=== PATIENT | male | born 1965 | race Caucasian/White ===

== ENCOUNTER 2017-07-25 10:23 | Inpatient (IN) | payer OTHER ==
[2017-07-25 11:16] VITALS: BMI 22.1
--- NOTE | 2017-07-25 11:17 | HP ---
COWS - Scale Resting Pulse: 0= [place] 80 or Below Sweatin= Chills/Flushing Restless Observation: 0= Sits Still Pupil Size: 0= Normal to Room Light Bone or Joint Aches: 2= Severe Diffuse Aches Runny Nose/ Eye Tearin= Nasal Congestion GI Upset > 30mins: 1= Stomach Cramp Tremor Observation: 1= Tremor [place], Not Seen Yawning Observation: 1= 1-2x During Session Anxiety or Irritability: 2=Irritable/Anxious Goose Flesh Skin: 3=Piloerection COWS Score: 12 Admission ROS BHS - HPI Chief Complaint: I'm tired of using, just tired, I have a new job I want to start Allergies/Adverse Reactions: Allergies Allergy/AdvReac Type Severity Reaction Status Date / Time No Known Allergies Allergy Verified 07/25/17 11:12 History of Present Illness: 52 yo gentleman here for first time detox from heroin - denies any prior medical problems, no seizure history, no alcohol use. Weight loss of 40lbs in last year. Exam Limitations: No Limitations - Ebola screening Have you traveled outside of the country in the last 21 days: No Have you had contact with anyone from an Ebola affected area: No Do you have a fever: No - Review of Systems Constitutional: Chills, Loss of Appetite, Malaise, Changes in sleep, Unintentional Wgt. Loss EENT: reports: Blurred Vision, Nose Congestion Respiratory: reports: No Symptoms reported Cardiac: reports: No Symptoms Reported GI: reports: Nausea : reports: Dysuria Musculoskeletal: reports: Back Pain, Muscle Pain Integumentary: reports: No Symptoms Reported Neuro: reports: Headache Endocrine: reports: No Symptoms Reported Hematology: reports: No Symptoms Reported Psychiatric: reports: Judgement Intact, Mood/Affect Appropiate, Orientated x3, Anxious Other Systems: Reviewed and Negative Patient History - Patient Medical History Hx Anemia: No Hx Asthma: No Hx Chronic Obstructive Pulmonary Disease (COPD): No Hx Cancer: No Hx Cardiac Disorders: No Hx Congestive Heart Failure: No Hx Hypertension: No Hx Hypercholesterolemia: No Hx Pacemaker: No HX Cerebrovascular Accident: No Hx Seizures: No Hx Dementia: No Hx Diabetes: No Hx Gastrointestinal Disorders: No Hx Liver Disease: No Hx Genitourinary Disorders: No Hx Sexually Transmitted Disorders: No Hx Renal Disease (ESRD): No Hx Thyroid Disease: No Hx Human Immunodeficiency Virus (HIV): No Hx Hepatitis C: No Hx Depression: No Hx Suicide Attempt: No Hx Bipolar Disorder: No Hx Schizophrenia: No - Patient Surgical History Past Surgical History: No - PPD History Previous Implant?: Yes Documented Results: Negative w/o proof PPD to be Administered?: Yes - Reproductive History Patient is a Female of Child Bearing Age (11 -55 yrs old): No (male) - Smoking Cessation Smoking history: Current every day smoker Have you smoked in the past 12 months: Yes Aproximately how many cigarettes per day: 10 Initiated information on smoking cessation: Yes 'Breaking Loose' booklet given: 07/25/17 (give on floor) - Substance & Tx. History Hx Alcohol Use: No Hx Substance Use: Yes Substance Use Type: Heroin, Marijuana Hx Substance Use Treatment: Yes - Substances Abused Heroin Route: Inhalation Frequency: Daily Amount used: 2 bags Age of first use: 50 Date of Last Use: 07/24/17 Marijuana/Hashish Route: Smoking Frequency: 1-2 times per week Amount used: 1 blunt Age of first use: 18 Date of Last Use: 07/24/17 Family Disease History - Family Disease History Family Disease History: Heart Disease: Father (, MD, ), Respiratory: Mother (, ), Other: Father, Mother, Brother (two - living - healthy), Sister (eight - living - healthy), Son (two - healthy ) Admission Physical Exam BHS - Vital Signs Vital Signs: Vital Signs Period Temp Pulse Resp BP Sys/Chavez Pulse Ox Last 24 Hr 97.7 F 69 20 118/75 - Physical General Appearance: Yes: Nourished, Appropriately Dressed, Mild Distress, Thin HEENTM: Yes: Hearing grossly Normal, Normocephalic, Normal Voice, Nasal Congestion, Rhinorrhea Respiratory: Yes: Normal Breath Sounds, No Respiratory Distress Neck: Yes: No masses,lesions,Nodules, Supple Breast: Yes: Breast Exam Deferred Cardiology: Yes: Regular Rhythm, Regular Rate Abdominal: Yes: Flat, Soft Genitourinary: Yes: Within Normal Limits Back: Yes: Normal Inspection Musculoskeletal: Yes: full range of Motion, Gait Steady, Back pain, Muscle Pain Extremities: Yes: Normal Inspection, Normal Range of Motion Neurological: Yes: Fully Oriented, Alert, Normal Mood/Affect, Normal Response Integumentary: Yes: Normal Color, Warm Lymphatic: Yes: Within Normal Limits - Diagnostic (1) Opioid dependence Current Visit: Yes Status: Acute Qualifiers: Substance use status: uncomplicated Qualified Code(s): F11.20 - Opioid dependence, uncomplicated (2) Nicotine dependence Current Visit: Yes Status: Chronic Qualifiers: Nicotine product type: cigarettes Substance use status: uncomplicated Qualified Code(s): F17.210 - Nicotine dependence, cigarettes, uncomplicated (3) Cannabis dependence Current Visit: Yes Status: Acute Cleared for Admission S - Detox or Rehab S Level of Care: Medically Managed Detox Regimen/Protocol: Methadone
[2017-07-25] MEDS ORDERED: hydrOXYzine PAMOATE 50 MG CAPSULE (FP) PO PRN (11:19)
[2017-07-25] MEDS ORDERED: MAGNESIUM HYDROX 2400MG/30ML ORAL SUSPENSION 30 ML CUP PO PRN (11:19)
[2017-07-25] MEDS ORDERED: NICOTINE POLACRILEX 2 MG GUM BUC PRN (11:19)
[2017-07-25] MEDS ORDERED: P-EPHED 60MG/TRIPROLIDI 2.5MG TABLET PO PRN (11:19)
[2017-07-25] MEDS ORDERED: MENTHOL/PHENOL 1 EACH UD MM PRN (11:19)
[2017-07-25] MEDS ORDERED: MAGNESIUM CITRATE 300 ML BOTTLE PO PRN (11:19)
[2017-07-25] MEDS ORDERED: MAG HYDROX/AL HYDROX/SIMETH 30 ML UNIT-DOSE CUP PO PRN (11:19)
[2017-07-25] MEDS ORDERED: ACETAMINOPHEN 325 MG TABLET (FP) PO PRN (11:19)
[2017-07-25] MEDS ORDERED: LOPERAMIDE HCL 2 MG CAPSULE PO PRN (11:19)
[2017-07-25] MEDS ORDERED: IBUPROFEN 400 MG TABLET (FP) PO PRN (11:19)
[2017-07-25] MEDS ORDERED: guaiFENesin/D-METHORPHAN HB 10 ML UNIT-DOSE CUPS PO PRN (11:19)
[2017-07-25] MEDS ORDERED: METHADONE HCL 10 MG TABLET (FOR DETOX USE ONLY) PO ONE ×2 (12:00→23:00)
[2017-07-25] MEDS: diazePAM 5 MG TABLET PO PRN ×2 (12:37→22:14)
[2017-07-25 17:51] LABS: URINE APPEARANCE CLEAR; URINE BILIRUBIN NEGATIVE (NEGATIVE); URINE BLOOD NEGATIVE (NEGATIVE); URINE COLOR LTYELLOW; URINE GLUCOSE (UA) NEGATIVE (NEGATIVE); URINE KETONE NEGATIVE (NEGATIVE); URINE LEUK ESTERASE NEGATIVE (NEGATIVE); URINE NITRITE NEGATIVE (NEGATIVE); URINE PROTEIN NEGATIVE (NEGATIVE); URINE UROBILINOGEN NEGATIVE mg/dL (0.2-1.0)
[2017-07-25] MEDS: THIAMINE HCL 100 MG TABLET (FP) PO SCH (22:14)
--- NOTE | 2017-07-26 07:19 | EKG ---
Test Reason : Blood Pressure : / mmHG Vent. Rate : 065 BPM Atrial Rate : 182 BPM P-R Int : 000 ms QRS Dur : 156 ms QT Int : 382 ms P-R-T Axes : 039 079 064 degrees QTc Int : 397 ms NORMAL SINUS RHYTHM NON-SPECIFIC INTRA-VENTRICULAR CONDUCTION BLOCK ABNORMAL ECG NO PREVIOUS ECGS AVAILABLE BASELINE ARTIFACT RECOMMEND REPEAT TRACING Confirmed by JAD ROSARIO, MAYURI ([id number]) on 07/26/2017 7:18:47 AM Referred By: Confirmed By:MAYURI STREET MD
[2017-07-26] MEDS ORDERED: METHADONE HCL 10 MG TABLET (FOR DETOX USE ONLY) PO ONE (10:00)
[2017-07-26 10:01] LABS: HEMATOCRIT 44.6 % (35.4-49); HEMOGLOBIN 14.3 GM/dL (11.7-16.9); MCH 30.9 pg (25.7-33.7); MCHC 32.1 g/dl (32.0-35.9); MEAN CELL VOLUME 96.4 fl (80-96); MEAN PLT VOLUME 8.3 fl (7.5-11.1); PLATELET COUNT 197 K/MM3 (134-434); RBC 4.62 M/mm3 (4.00-5.60); RDW 13.8 % (11.9-15.9); WHITE BLOOD COUNT 11.5 K/mm3 (4.0-10.0)
[2017-07-26 10:27] LABS: ALBUMIN 2.8 g/dl (3.4-5.0); ANION GAP 4 (8-16); BLOOD UREA NITROGEN 13 mg/dL (7-18); CALCIUM 8.4 mg/dL (8.5-10.1); CHLORIDE 107 mmol/L (98-107); CO2 29 mmol/L (21-32); CREATININE 0.9 mg/dL (0.7-1.3); GLUCOSE,RANDOM 82 mg/dL (74-106); POTASSIUM 4.2 mmol/L (3.5-5.1); SGOT/AST 7 U/L (15-37); SGPT/ALT 15 U/L (12-78); SODIUM 140 mmol/L (136-145)
[2017-07-26 10:29] LABS: ALK PHOS 78 U/L (45-117); BILIRUBIN,TOTAL 0.3 mg/dL (0.2-1.0)
[2017-07-26] MEDS: PRENATAL VITAMINS W/ FOLIC ACID TABLET (FP) PO SCH (10:30)
--- NOTE | 2017-07-26 14:21 | PN ---
BHS COWS - Scale Resting Pulse: 0= [place] 80 or Below Sweatin=Flushed/Facial Moisture Restless Observation: 1= Difficult to Sit Still Pupil Size: 0= Normal to Room Light Bone or Joint Aches: 1= Mild Discomfort Runny Nose/ Eye Tearin= Nasal Congestion GI Upset > 30mins: 2= Nausea/Diarrhea Tremor Observation of Outstretched Hands: 2= Slight Tremor Visible Yawning Observation: 0= None Anxiety or Irritability: 2=Irritable/Anxious Goose Flesh Skin: 0=Smooth Skin COWS Score: 11 BHS Progress Note (SOAP) Subjective: withdrawal symptoms Objective: 07/26/17 14:19 Vital Signs Temperature 97.2 F L 07/26/17 14:17 Pulse Rate 74 07/26/17 14:17 Respiratory Rate 18 07/26/17 14:17 Blood Pressure 108/67 07/26/17 14:17 O2 Sat by Pulse Oximetry (%) Assessment: 07/26/17 14:19 withdrawal sx Plan: continue detox
[2017-07-26] MEDS: diazePAM 5 MG TABLET PO PRN ×2 (17:25→22:10)
[2017-07-26] MEDS: THIAMINE HCL 100 MG TABLET (FP) PO SCH (22:10)
[2017-07-27] MEDS ORDERED: METHADONE HCL 5 MG TABLET (FOR DETOX USE ONLY) PO ONE (10:00)
[2017-07-27 10:22] VITALS: BP 113/72; PULSE 72; TEMP 97.5
[2017-07-27] MEDS: PRENATAL VITAMINS W/ FOLIC ACID TABLET (FP) PO SCH (10:24)
[2017-07-27] MEDS: diazePAM 5 MG TABLET PO PRN (10:27)
--- NOTE | 2017-07-27 11:28 | PN ---
BHS COWS - Scale Resting Pulse: 0= [place] 80 or Below Sweatin= Chills/Flushing Restless Observation: 3= Extraneous Movement Pupil Size: 1= Pupils >than Normal Bone or Joint Aches: 2= Severe Diffuse Aches Runny Nose/ Eye Tearin= Runny Nose/Eyes GI Upset > 30mins: 3= Vomiting/Diarrhea Tremor Observation of Outstretched Hands: 2= Slight Tremor Visible Yawning Observation: 1= 1-2x During Session Anxiety or Irritability: 2=Irritable/Anxious Goose Flesh Skin: 0=Smooth Skin COWS Score: 17 S Progress Note (SOAP) Subjective: ALERT,IRRITABLE,ANXIOUS,INTERRUPTED SLEEP,PAIN IN THE BODY AND BACK Objective: 07/27/17 11:26 Vital Signs Temperature 97.5 F L 07/27/17 10:00 Pulse Rate 72 07/27/17 10:00 Respiratory Rate 18 07/27/17 10:00 Blood Pressure 113/72 07/27/17 10:00 O2 Sat by Pulse Oximetry (%) Laboratory Last Values WBC 11.5 K/mm3 (4.0-10.0) H 07/26/17 07:45 RBC 4.62 M/mm3 (4.00-5.60) 07/26/17 07:45 Hgb 14.3 GM/dL (11.7-16.9) 07/26/17 07:45 Hct 44.6 % (35.4-49) 07/26/17 07:45 MCV 96.4 fl (80-96) H 07/26/17 07:45 MCH 30.9 pg (25.7-33.7) 07/26/17 07:45 MCHC 32.1 g/dl (32.0-35.9) 07/26/17 07:45 RDW 13.8 % (11.9-15.9) 07/26/17 07:45 Plt Count 197 K/MM3 (134-434) 07/26/17 07:45 MPV 8.3 fl (7.5-11.1) 07/26/17 07:45 Sodium 140 mmol/L (136-145) 07/26/17 07:45 Potassium 4.2 mmol/L (3.5-5.1) 07/26/17 07:45 Chloride 107 mmol/L (98-107) 07/26/17 07:45 Carbon Dioxide 29 mmol/L (21-32) 07/26/17 07:45 Anion Gap 4 (8-16) L 07/26/17 07:45 BUN 13 mg/dL (7-18) 07/26/17 07:45 Creatinine 0.9 mg/dL (0.7-1.3) 07/26/17 07:45 Creat Clearance w eGFR > 60 (>60) 07/26/17 07:45 Random Glucose 82 mg/dL (74-106) 07/26/17 07:45 Calcium 8.4 mg/dL (8.5-10.1) L 07/26/17 07:45 Total Bilirubin 0.3 mg/dL (0.2-1.0) 07/26/17 07:45 AST 7 U/L (15-37) L 07/26/17 07:45 ALT 15 U/L (12-78) 07/26/17 07:45 Alkaline Phosphatase 78 U/L (45-117) 07/26/17 07:45 Total Protein 6.0 g/dl (6.4-8.2) L 07/26/17 07:45 Albumin 2.8 g/dl (3.4-5.0) L 07/26/17 07:45 Urine Color Ltyellow 07/25/17 15:55 Urine Appearance Clear 07/25/17 15:55 Urine pH 5.0 (5.0-8.0) 07/25/17 15:55 Ur Specific Max 1.019 (1.001-1.035) 07/25/17 15:55 Urine Protein Negative (NEGATIVE) 07/25/17 15:55 Urine Glucose (UA) Negative (NEGATIVE) 07/25/17 15:55 Urine Ketones Negative (NEGATIVE) 07/25/17 15:55 Urine Blood Negative (NEGATIVE) 07/25/17 15:55 Urine Nitrite Negative (NEGATIVE) 07/25/17 15:55 Urine Bilirubin Negative (NEGATIVE) 07/25/17 15:55 Urine Urobilinogen Negative mg/dL (0.2-1.0) 07/25/17 15:55 Ur Leukocyte Esterase Negative (NEGATIVE) 07/25/17 15:55 RPR Titer Nonreactive (NONREACTIVE) 07/26/17 07:45 HIV 1&2 Antibody Screen Negative 07/26/17 07:45 HIV P24 Antigen Negative 07/26/17 07:45 Assessment: 07/27/17 11:26 WITHDRAWAL SYMPTOM Plan: CONTINUE DETOX,ENCOURAGE ORAL FLUID,REPEAT ABC IN AM
--- NOTE | 2017-07-27 11:29 | PN ---
S Progress Note Note: PATIENT DID NOT WANT TO COMPLETE TREATMENT,STATED HAS TO GO TO WORK,SIGNED RELEASE AMA,SEEN BY COUNSELOR
--- NOTE | 2017-07-27 11:32 | DS ---
[facility] Detox Discharge Summary Admission Date: 07/25/17 Discharge Date: 07/27/17 - History Present History: Cannabis Dependence, Opioid Dependence Additional Comments: PATIENT DID NOT WANT TO COMPLETE TREATMENT,STATED HAS TO GO TO WORK,SEEN BY COUNSELOR, SIGNED RELEASE AMA Pertinent Past History: NICOTINE DEPENDENCE - Physical Exam Results Vital Signs: Vital Signs Temperature 97.5 F L 07/27/17 10:00 Pulse Rate 72 07/27/17 10:00 Respiratory Rate 18 07/27/17 10:00 Blood Pressure 113/72 07/27/17 10:00 O2 Sat by Pulse Oximetry (%) Pertinent Admission Physical Exam Findings: WITHDRAWAL SYMPTOM - Medication Discharge Medications: Ambulatory Orders NK [No Known Home Medication] 07/25/17 - AMA Did Patient Leave Against Medical Advice: Yes
[2017-07-28] MEDS ORDERED: METHADONE HCL 5 MG TABLET (FOR DETOX USE ONLY) PO ONE (10:00)
[2017-07-29] MEDS ORDERED: METHADONE HCL 10 MG TABLET (FOR DETOX USE ONLY) PO ONE (10:00)
[2017-07-30] MEDS ORDERED: METHADONE HCL 5 MG TABLET (FOR DETOX USE ONLY) PO ONE (06:00)
== END 2017-07-27 11:52 | disposition left against medical advice (07) | DRG 770 ==
LOC: YASAS 10:23 → Y6N 11:41
PROVIDERS: ADMIT Internal Medicine; ATTEND Internal Medicine
PROC: HZ2ZZZZ Detoxification Services for Substance Abuse Treatment (ICD-10-PCS; principal; 2017-07-25)
DX: F11.23 Opioid dependence with withdrawal (principal); F12.20 Cannabis dependence, uncomplicated; F17.210 Nicotine dependence, cigarettes, uncomplicated
CPT/HCPCS: 36415; 80053; 81003; 85027; 86593; 86803; 87389; 93005; 93010